=== PATIENT | female | born 1955 | race Caucasian/White ===

== ENCOUNTER → 2019-03-08 | Outpatient (CLI) | payer OTHER ==
[2019-03-08 09:42] LABS: ALBUMIN 4.1 g/dL (3.4-5.0); CHLORIDE 107 mmol/L (98-107)
[2019-03-08 09:47] LABS: ALANINE AMINOTRANSFERASE 33 U/L (12-78); ALKALINE PHOSPHATASE 86 U/L (45-117); ANION GAP 4 mmol/L (5-15); BILIRUBIN,TOTAL 0.7 mg/dL (0.2-1.0); CALCIUM 8.9 mg/dL (8.5-10.1); CHOLESTEROL, TOTAL 196 mg/dL (140-239); CREATININE 0.88 mg/dL (0.55-1.02); HDL CHOL % 25 % (28-40); HDL CHOLESTEROL (DIRECT) 49 mg/dL (40-60); LDL CHOLESTEROL,CALCULATED 108 mg/dL (54-169); LDL/HDL RATIO 2.2 (0.5-3.0); TOTAL PROTEIN 7.3 g/dL (6.4-8.2); TRIGLYCERIDES 195 mg/dL (50-200); VLDL CHOLESTEROL 39 mg/dL (0-25)
== END | disposition home or self-care (01) ==
LOC: LAB 08:55
PROVIDERS: ATTEND Internal Medicine
DX: E78.2 Mixed hyperlipidemia (principal); E83.52 Hypercalcemia; F32.9 Major depressive disorder, single episode, unspecified; G47.00 Insomnia, unspecified; G56.00 Carpal tunnel syndrome, unspecified upper limb
CPT/HCPCS: 36415; 80053; 80061

== ENCOUNTER → 2020-12-04 | Outpatient (CLI) | payer OTHER | END | disposition home or self-care (01) | LOC: CFH 14:09 | PROVIDERS: ATTEND Internal Medicine | DX: Z12.31 Encounter for screening mammogram for malignant neoplasm of breast (principal) | CPT/HCPCS: 77063; 77067 ==

== ENCOUNTER 2021-04-24 07:31 | Day surgery (SDC) | payer OTHER ==
[~2021-04-24] VITALS: Ht 162.6 cm; Wt 61.7 kg
[~2021-04-24 07:31] MED LIST: BUPIVACAINE/PF 0.5% ONE; EPINEPHRINE 1 MG/ML, 1ML ONE; ESCI20TA8 PO; MULT-658 PO; TEMA30CA PO
[2021-04-24 07:52] VITALS: BP 145/77
[2021-04-24] MEDS ORDERED: LACTATED RINGERS 1,000 ML IV SCH (08:00)
[2021-04-24] MEDS ORDERED: CHLORHEXIDINE 15 ML UDC PO ONE (08:00)
[2021-04-24] MEDS ORDERED: FENTANYL PF 100 MCG/2ML ONE (08:48)
[2021-04-24] MEDS ORDERED: MIDAZOLAM 1 MG/ML, 2ML ONE (08:49)
[2021-04-24] MEDS ORDERED: ONDANSETRON 2MG/ML, 2ML ONE (08:53)
[2021-04-24] MEDS ORDERED: CEFAZOLIN 1,000 MG ONE (08:53)
[2021-04-24] MEDS ORDERED: PROPOFOL 10 MG/ML, 20ML ONE (08:53)
[2021-04-24] MEDS ORDERED: DEXAMETHASONE 4 MG/ML, 1ML ONE (08:53)
== END 2021-04-24 10:40 | disposition home or self-care (01) ==
LOC: OUT 07:31
PROVIDERS: ATTEND Orthopaedic Surgery
DX: G56.01 Carpal tunnel syndrome, right upper limb (principal); Z20.822 Contact with and (suspected) exposure to COVID-19; Z79.899 Other long term (current) drug therapy; Z88.5 Allergy status to narcotic agent; Z91.040 Latex allergy status
CPT/HCPCS: 29848; 93005; J0171; J0690; J1100; J2250; J2405; J2704; J3010; J7120; U0003; U0005